=== PATIENT | female | born 1960 | race Caucasian/White ===

== ENCOUNTER 2017-05-02 13:17 | Emergency (ER) | payer OTHER ==
[2017-05-02 13:50] VITALS: RESP 16; O2SAT 94
--- NOTE | 2017-05-02 14:24 | EDPHY ---
H & P Time Seen by Provider: 05/02/17 14:02 HPI/ROS: CHIEF COMPLAINT: left ring finger pain and deformity HISTORY OF PRESENT ILLNESS: 57-year-old female presents with left 4th digit pain and deformity. She jammed her finger yesterday. She has been unable to extend the finger fully at the PIP since then. Associated with mild pain over the distal joint. ROS: No numbness, weakness, excessive bleeding, syncopal episode, other injury. Past Medical/Surgical History: Hypothyroidism Smoking Status: Never smoked Physical Exam: Alert and oriented, pleasant Extremities: left 4th digit-swelling and tenderness over the DIP, unable to extend fully at the DIP Skin: intact Neuro: Motor and sensory intact Vascular: Capillary refill brisk distally Constitutional: Initial Vital Signs Temperature (C) 37.1 C 05/02/17 13:43 Heart Rate 69 05/02/17 13:43 Respiratory Rate 16 05/02/17 13:43 Blood Pressure 142/61 H 05/02/17 13:43 O2 Sat (%) 94 05/02/17 13:43 O2 Delivery Mode Room Air Allergies/Adverse Reactions: No Known Allergies Allergy (Verified 05/02/17 13:50) Home Medications: Medication Instructions Recorded Levothyroxine 11/08/15 Vivelle-Dot 0.025MG (RX) 11/08/15 Medical Decision Making - Diagnostics Imaging Results: Imaging Impressions Finger X-Ray 05/02/17 13:52 Impression: Mildly displaced avulsion fracture from the dorsal base of the distal phalanx fourth finger. ED Course/Re-evaluation: A plastic DIP joint extension splint was placed. Neurovascularly intact after application. Departure - Departure Disposition: Home, Routine, Self-Care Clinical Impression: Mallet deformity of left ring finger Condition: Good Instructions: Jammed Finger (ED) Additional Instructions: Keep the splint on. You may remove it to shower or wash your hands. Referrals: Shahzad Judd MD [Medical Doctor] - As per Instructions (Call to make an appointment.)
[2017-05-02 14:47] VITALS: BP 117/81; PULSE 60; TEMP 98.6
== END 2017-05-02 14:32 | disposition home or self-care (01) ==
LOC: CED 13:17
DX: M20.012 Mallet finger of left finger(s) (principal); W23.1XXA Caught, crushed, jammed, or pinched between stationary objects, initial encounter
CPT/HCPCS: 73140-PO

== ENCOUNTER → 2018-11-26 | Outpatient (CLI) | payer OTHER | LOC: CIMAGING 07:56 | PROVIDERS: ATTEND Internal Medicine | DX: Z12.31 Encounter for screening mammogram for malignant neoplasm of breast (principal) ==